=== PATIENT | female | born 1970 | race Two or more races ===

== ENCOUNTER 2016-08-14 15:49 | Emergency (ER) | payer OTHER ==
[~2016-08-14] VITALS: Ht 157.5 cm; Wt 62.6 kg
[~2016-08-14 15:49] MED LIST: ALPR0.25 GT; DULO60CA; DULO60CA PO; FERR325T; HYDROCODONE; HYOS0.1291; LIS10T GT; LISI-275; METF1000 OR; SAXA1TAB; SIMV-8; TRAM50TA2
[2016-08-14 15:57] VITALS: BP 143/79
[2016-08-14 17:03] LABS: Basophils # (auto) 0 uL; Basophils % (auto) 0.5 % (0.0-2.0); DEFINITIVE VIEW TRANSMISSION; Eosinophils # (auto) 0 uL; Eosinophils % (auto) 0.2 % (0.0-7.0); Hematocrit 40.2 % (36.0-46.0); Hemoglobin 13.4 g/dL (12.2-16.2); Lymphocytes # (auto) 1.3 uL; Lymphocytes % (auto) 20.2 % (10.0-50.0); Mean Corpuscular Hgb Conc. 33.3 g/dL (32.0-36.0); Monocytes # (auto) 0.3 uL; Monocytes % (auto) 5.2 % (0.0-12.0); Neutrophils # (auto) 4.8 uL; Neutrophils % (auto) 73.9 % (37.0-80.0); Platelet Count (auto) 276 10^3/uL (140-450); Red Cell Distribution Width 15.3 % (11.6-16.0); White Blood Cell 6.5 10^3/uL (4.4-10.8)
[2016-08-14 17:11] LABS: Albumin 3.8 g/dL (3.4-5.0); Anion Gap 9 (5-15); Blood Urea Nitrogen 17 mg/dL (7-18); Calcium 8.7 mg/dL (8.5-10.1); Carbon Dioxide 26 mmol/L (21-32); Chloride 106 mmol/L (98-107); Glucose 210 mg/dL (74-106); Potassium 3.8 mmol/L (3.5-5.1); Sodium 141 mmol/L (136-145)
[2016-08-14 17:13] LABS: Aspartate Aminotransferase 7 U/L (15-37); BUN/Creatinine Ratio 17.3; GFR African American 78 mL/min; GFR Non-African American 64 mL/min
[2016-08-14 17:18] LABS: Alkaline Phosphatase 62 U/L (45-117); Bilirubin, Total 0.3 mg/dL (0.2-1.0); Total Protein 7.6 g/dL (6.4-8.2)
== END 2016-08-14 21:50 | disposition left against medical advice (07) ==
LOC: ER 15:53
DX: R07.89 Other chest pain (principal); Z53.21 Procedure and treatment not carried out due to patient leaving prior to being seen by health care provider
CPT/HCPCS: 36415; 71020; 80053; 84484; 85025; 93005

== ENCOUNTER 2022-02-10 03:14 | Emergency (ER) | payer BC, OTHER ==
[~2022-02-10] VITALS: Ht 162.6 cm; Wt 160.0 kg
[~2022-02-10 03:14] MED LIST changes: +FERR-20; -FERR325T
[2022-02-10 04:12] LABS: Basophils # (auto) 0.1 10 ^3/uL (0-0.2); Eosinophils # (auto) 0 10 ^3/uL (0-0.8); Eosinophils % (auto) 0.4 % (0.0-7.0); Hemoglobin 12.8 g/dL (12.2-16.2); Red Blood Cells 4.77 10^6/uL (4.0-5.20); White Blood Cell 8.9 10^3/uL (4.4-10.8)
[2022-02-10 04:14] LABS: Basophils % (auto) 0.7 % (0.0-2.0); Hematocrit 38.7 % (36.0-46.0); Lymphocytes # (auto) 2.7 10 ^3/uL (0.4-5.4); Lymphocytes % (auto) 29.7 % (10.0-50.0); Mean Corpuscular Hemoglobin 26.9 pg (28.0-32.0); Mean Corpuscular Hgb Conc. 33.1 g/dL (32.0-36.0); Mean Corpuscular Volume 81.2 fL (80.0-100.0); Monocytes # (auto) 0.3 10 ^3/uL (0-1.3); Monocytes % (auto) 3.8 % (0.0-12.0); Neutrophils # (auto) 5.8 10 ^3/uL (1.6-8.6); Neutrophils % (auto) 65.4 % (37.0-80.0); Nucleated Red Blood Cells % 0.1 %; Red Cell Distribution Width 14.5 % (11.8-14.3)
[2022-02-10 04:33] LABS: Calcium 8.8 mg/dL (8.5-10.1); Potassium 3.3 mmol/L (3.5-5.1)
[2022-02-10 04:36] LABS: BUN/Creatinine Ratio 15.4; Bilirubin, Total 0.4 mg/dL (0.2-1.0); Total Protein 7.4 g/dL (6.4-8.2)
[2022-02-10 08:15] VITALS: BP 124/66
[2022-02-10 08:38] LABS: Urine Bacteria FEW /hpf (None Seen); Urine Blood Negative /uL (Negative); Urine Mucus FEW (None Seen); Urine Specific Gravity 1.021 (1.001-1.035); Urine WBC 1 /hpf (0 - 5)
[2022-02-10] MEDS ORDERED: KETOROLAC TROMETH 30 MG/ML 1ML VIAL IM ONE (09:30)
[2022-02-10] MEDS ORDERED: POTASSIUM EFFERVESENT TAB 25 MEQ PO ONE (09:30)
[2022-02-10] MEDS ORDERED: ONDANSETRON ODT 4 MG TAB PO ONE (09:30)
== END 2022-02-10 10:31 | disposition home or self-care (01) ==
LOC: EDUNIT# 03:14 → ER 03:14 → EDBD 03:14 → ER 10:29
DX: E87.6 Hypokalemia (principal); R11.0 Nausea; R42 Dizziness and giddiness; F12.19 Cannabis abuse with unspecified cannabis-induced disorder
CPT/HCPCS: 36415; 80053; 81001; 81025; 84702; 85025; 93005; 96372; 99284; J1885; Q0162

== ENCOUNTER 2024-10-21 07:52 | Inpatient (IN) | payer BC ==
[2024-10-17 15:01] LABS: Urine Bacteria None Seen /hpf (None Seen)
[2024-10-17 15:07] LABS: Basophils # (auto) 0 10 ^3/uL (0-0.2); Basophils % (auto) 0.5 % (0.0-2.0); Eosinophils # (auto) 0 10 ^3/uL (0-0.8); Eosinophils % (auto) 0.7 % (0.0-7.0); Hematocrit 40.9 % (36.0-46.0); Hemoglobin 13.5 g/dL (12.2-16.2); Lymphocytes % (auto) 32.9 % (10.0-50.0); Mean Corpuscular Hemoglobin 25.9 pg (28.0-32.0); Mean Corpuscular Hgb Conc. 33.1 g/dL (32.0-36.0); Mean Corpuscular Volume 78.1 fL (80.0-100.0); Monocytes # (auto) 0.4 10 ^3/uL (0-1.3); Monocytes % (auto) 6.1 % (0.0-12.0); Neutrophils # (auto) 3.7 10 ^3/uL (1.6-8.6); Neutrophils % (auto) 59.8 % (37.0-80.0); Platelet Count (auto) 252 10^3/uL (140-450); Red Blood Cells 5.23 10^6/uL (4.0-5.20); White Blood Cell 6.1 10^3/uL (4.4-10.8)
[2024-10-17 15:10] LABS: Urine Blood Negative /uL (Negative); Urine Clarity Clear (Clear); Urine Color Colorless (Yellow); Urine Protein, UAD Negative (Negative); Urine Specific Gravity 1.005 (1.001-1.035); Urine Squamous Epithelial Cell FEW /hpf (<5); Urine Urobilinogen Normal (Negative); Urine WBC 2 /HPF (0-5)
[2024-10-17 15:18] LABS: INR 0.99 (0.9-1.15); Partial Thromboplastin Time 31.1 SEC (24.5-34.5); Prothrombin Time 10.5 sec (9.3-11.8)
[2024-10-17 15:28] LABS: Alanine Aminotransferase 52 U/L (7-40); Alkaline Phosphatase 175 U/L (46-116); Anion Gap 7 (5-15); Aspartate Aminotransferase 31 U/L (13-40); Bilirubin, Total 0.5 mg/dL (0.2-1.0); Blood Urea Nitrogen 9 mg/dL (9-23); Calcium 10.2 mg/dL (8.7-10.4); Carbon Dioxide 32 mmol/L (20-31); Chloride 104 mmol/L (98-107); Glucose 76 mg/dL (74-106); Sodium 143 mmol/L (136-145); Total Protein 7.5 g/dL (5.7-8.2)
[~2024-10-21] VITALS: Ht 157.5 cm; Wt 98.0 kg
[~2024-10-21 07:52] MED LIST changes: +ATOR10TA PO; -DULO60CA; -DULO60CA PO; +DULO60CA41; +DULO60CA41 PO; +ETAN50IN10 SC; +EZET-10 PO; -FERR-20; -HYDROCODONE; -HYOS0.1291; +INSU1INJ14 SC; +LINA290C OR; -LIS10T GT; -LISI-275; +LISI20TA56 PO; -METF1000 OR; +PREG150C PO; +PROP1TAB51 PO; -SAXA1TAB; +SEMA2INJ3 SC; -SIMV-8; -TRAM50TA2
[2024-10-21] MEDS ORDERED: MIDAZOLAM HCL 2MG/2ML 2ml VIAL (1mg/ml) ONE (08:45)
[2024-10-21] MEDS ORDERED: fentaNYL CITRATE 100 MCG/2 ML VL ONE (08:45)
[2024-10-21] MEDS ORDERED: fentaNYL CITRATE 5 ML ONE (08:45)
[2024-10-21] MEDS ORDERED: GLYCOPYRROLATE 0.2 MG/ML 1ML VIAL ONE (08:46)
[2024-10-21] MEDS ORDERED: HYDROCORTISONE SOD SUCC 100 MG/2ML INJ VIAL ONE (08:46)
[2024-10-21] MEDS ORDERED: PROPOFOL 10 MG/ML 20 ML IV ONE ×2 (08:46→11:31)
[2024-10-21] MEDS ORDERED: ROCURONIUM 10MG/ML 10ML VIAL IV ONE (08:46)
[2024-10-21] MEDS ORDERED: ONDANSETRON HCL 4 MG/2 ML VIAL ONE (08:46)
[2024-10-21] MEDS ORDERED: KETAMINE 50mg/ML 1ml syringe ONE (08:51)
[2024-10-21] MEDS ORDERED: HYDROmorphone HCL 2 MG/ML VL/or syr ONE (08:51)
--- NOTE | 2024-10-21 08:57 | DVHHP2 ---
History Allergies: Coded Allergies: Metoclopramide (Verified Allergy, Unknown, 08/14/16) Chief Complaint: Lumbar back pain radiating down the left leg, lumbar stenosis with neurogenic claudication and excruciating back pain Present Illness(Onset/Duration Patient complains of left-sided leg weakness initially upper and lower, upper weakness resolved after she had cervical spine surgery she is having residual lumbar radiculopathies and low back pain to the left side Noncontributory Past Surgical History: Other (Patient reports she has had right shoulder surgery prior C-spine surgery, cholecystectomy hysterectomy) Exam Exam General Appearance: No Apparent Distress, Normal HEENT: Normal ENT Inspection Neck: None, Normal Respiratory: No Accessory Muscle Use, None, No Respiratory Distress, Other (Pa binta is speaking full sentences) Cardiovascular: No Edema, No JVD, Other (Skin is pink warm and dry) Gastrointestinal: Other (No complaints of nausea vomiting) Extremities: Normal capillary refill, Normal inspection, Other (Low back pain generated when lifting left knee off the bed to resistance strength is 5/5) Neurologic: Alert, No Motor Deficits, Normal Affect, Normal Mood Cerebellar Function: Other (Low back pain can limit her sitting and standing) Skin: Normal Color Plan Additional comments: Patient arrived for elective spine surgery with Dr. Arsen arguello for a lumbar 3-5 posterior spinal decompression with L3-4, L4-5 posterior spinal interbody fusion The risks/benefits/alternatives of surgery were explained to the patient in detail including but not limited to , stroke, paralysis, myocardial infarction, bleeding, infection, complications of anesthesia (dry mouth, sore throat, dental damage, respiratory depression, blindness), postoperative infe ction, incomplete relief of symptoms, recurrence of symptoms, damage to blood vessels, nerves and tendons, pulmonary embolism and possible need for repeat surgery in the future. Pain, damage to surrounding soft tissue structures, need for reoperation or future surgery, persistent pain/disability/deformity, bone graft collapse or extrusion of interbody device, instrumentation failure, need for instrumentation removal, dural tear, temporary or permanent nerve root damage, deep vein thrombosis, pulmonary embolism, were described to the patient in detail and the patient wishes to proceed. No guarantee of surgical outcome/improvement was implied. All of the questions were answered thoroughly and consents were obtained. Call with america Oakley [facility] Orthopaedic Spine Surgery nurse practitioner For Dr Alex Newby Patient was examined, chart reviewed, labs evaluated, and diagnostic studies and findings analyzed. Case was discussed with Dr. Arsen Newby who formulated the plan of care. This medical document was created using an electronic medical record system with Nixon dictation system. Although this document has been carefully reviewed, there might still be some phonetic and typographical errors. These areas are purely typographical due to imperfections of the software programs, and do not reflect any compromise in the patient's medical care. ALEK OAKLEY NP October 21, 2024 08:57
[2024-10-21] MEDS ORDERED: SUGAMMADEX 200mg/2ml Vial (100MG/ML) IV ONE (11:51)
--- NOTE | 2024-10-21 12:32 | DVHOP2 ---
Operative Report - 2 Report Details Date: 10/21/24 Preop Diagnosis: lumbar degenerative disc disease with spinal stenosis at L3/4 and L4/5 in a congenitally narrow canal causing incapacitating lumbar radiculopathy and neurogenic claudication Postop Diagnosis: same as pre op Surgeon: Arsen Newby MD [employer] Ad[employer] Representative: Antonina Oakley NP Anesthesiologist: Ifeanyi Anesthesia: General Consent: The patient was informed of the risks and benefits of the procedure. These include but are not limited to complications of anesthesia, postoperative infection, incomplete relief of symptoms, recurrence of symptoms, damage to blood vessels, nerves and tendons, deep venous thrombosis, pulmonary embolism and possible need for repeat surgery in the future. Name of Procedure Performed see detailed note Procedure Details Procedure Details: Pre-op Diagnosis: Lumbar Degenerative Disk Disease and Lumbar Spinal Stenosis causing Incapacitating back pain, radiculopathy/ neurogenic claudication and progressive neurologic deficit in a congenitally narrow canal Post-op Diagnosis: Lumbar Degenerative Disk Disease and Lumbar Spinal Stenosis causing Incapacitating back pain, radiculopathy/ neurogenic claudication and progressive neurologic deficit Procedure: Lumbar 5 laminectomy with Lumbar 5 foraminotomies and facetectomies to decompress central canal and Lumbar 5 nerve roots Lumbar 4 laminectomy with Lumbar 4 foraminotomies and facetectomies to decompress central canal and Lumbar 4 nerve roots Lumbar 3 laminectomy with Lumbar 3 foraminotomies and facetectomies to decompress central canal and Lumbar 4 nerve roots Lumbar 3 to 4 posterior spinal interbody fusion with PEEK cage Lumbar 4 to 5 posterior spinal interbody fusion with PEEK cage Lumbar 3 to 5 posterior spinal instrumentation with pedicle screws Local Bone Autograft For Fusion Allograft Bone Substitute (Bacterin) to augment Fusion Use of Demineralized Bone Matrix to Augment Fusion Microscope For Microdissection Surgeon: Arsen Newby MD Assist: AMIRA Franco Anesthesia: General Fluids and EBL: See anesthesia note Patient was seen in the Pre Anesthesia Care Unit (PACU) and the operative site was initialed by me. All questions were answered to the patients satisfaction and chart reviewed. The patient was taken to the operative room where pre- operative antibiotics were given 30 minutes prior to incision. General anesthesia was induced and neuro-monitoring leads placed. Azevedo catheter was placed. The patient was turned prone onto the [facility] spinal table. While positioning, I made sure that the belly was free to allow proper expansion of the lungs. The hips were extended and all bony prominences padded. The shoulders were abducted 80 degree and the elbows flexed 100 degrees with no tension on the brachial plexus. I check the foot arterial pulses and they were palpable. The patient was prepped and draped and time out was taken at this time per usual protocol. At this time, the C-arm fluoroscope was brought in and was used to emery the incision borders proximally and distally. Using a Number 10 Blade, an incision was made extending it proximally and distally per C arm emery from the posterior spinous process of lumbar 4,5 down to the lumbo-dorsal fascia. All bleeding was controlled with electrocautery. Self-retaining retractors were placed. Electrocautery was then used to take down the lumbo- dorsal fascia, to free the muscle off the bone bilaterally. A Jeffrey retractor was placed over the posterior spinous process proximally and a lateral C-arm fluoroscope image was taken to insure we were at the correct level. Next, using bovie electro cautery, The deep fascia laterally to the facet joints was removed to expose the transverse processes of lumbar 3, 4 and 5 while taking care to avoid injuring the facet capsule at the proximal end of the incision. Next, the microscope was bought in for visualization and using a Luxell rongeur, the posterior spinous process of lumbar 3 and 4 and 5 bone were removed and the bone was saved for use as local autograft. I used alternating Kerison 2 mm and 3 mm rongeurs to perform central laminectomies lumbar 5 and 4 and 3 to decompress the central canal. Next using alternating Kerison 2mm and 3 mm rongeurs, the superior articular facets of lumbar 3, 4 and 5 were removed bilaterally to decompress the lateral recess (facetectomies) and then extended proximally to decompress the foramen bilaterally (foraminotomies). I used a ball tipped nerve probed to insure that the respective nerve roots were able to be mobilized 5mm in each direction were unimpeded in the lateral recess and foramen. Next I carefully inspected the dura to make sure no durotomy was visible and it was not. I retracted the right lumbar 5 nerve medially and used increasing size mauri until the proper size prepared and then inserted a 8X28mm PEEK cage in to the disc space at L4/5 using C arm fluoroscopy. I repeated this process at the L3/4 level. The L4/5 PEEK device was 11mm thick. L3/4 PEEK device was 10mm Thick I covered the exposed dura with gelfoam soaked in thrombin and the microscope was wheeled away from the operative filed. The C-arm fluoroscope was brought in and perfect AP views of the lumbar 4 and 5 pedicles were obtained. I placed bilateral pedicle screws at these levels by: using a Lenke awl to make a pilot teacher hole, then a ball tip robe to make sure there was no pedicle breach, then a tap to prepare the track and a 6.5 mm diameter 45 mm length pedicle screw was placed bilaterally. This step to place bilateral pedicle screws was repeated up to the lumbar 3, 4 and 5 level. Next, the c-arm fluoroscope took an AP and lateral x-ray to ensure proper placement of the pedicle screws. Next, the neuro-stimulation probe was placed over the tip of each screw and each screw stimulated only after a current greater than 10 mA was delivered to the screw. Next , I took a Midas Lucas Drill to decorticate the transverse process which were exposed and local bone graft, Bacterin allograft bone substitute and Demineralized bone matrix were placed along the inter transverse process intervals bilaterally (the fusion bed). Next a curved santino sized to fit the pedicle screw interval was placed and secured to each pedicle screw using set screws, The set screws were tightened using a torque screwdriver (set to 10 N*M torque) to secure the santino to the pedicle screws bilaterally. Final AP and lateral C arm fluoroscopic films were taken at this time. Next a 10 Monegasque diameter Hemovac drain was laced deep to the lumbo- dorsal fascia. The lumbo-dorsal fascia was closed with interrupted 0-Vicryl sutures. The subcutaneous tissue was closed with interrupted 2-0 Vicryl sutures. The skin was closed with running 2-0 nylon suture. Sterile dressings were place. The pt. was turned supine onto the stretcher, extubated and taken to the recovery room in stable condition. cpt codes: 46941 , 50452, 60822, 32234, 96516, [id number] Condition Stable Disposition Still a Patient ARSEN NEWBY MD October 21, 2024 12:32
[2024-10-21] MEDS ORDERED: NITROGLYCERIN 0.4 MG SL TAB SL PRN (12:45)
[2024-10-21] MEDS ORDERED: MORPHINE SULFATE INJ 2 MG/ml SYRG IV PRN (12:45)
[2024-10-21] MEDS ORDERED: DEXTROSE (50%) 50ML SYRG IV PRN ×2 (12:45→15:45)
[2024-10-21] MEDS ORDERED: ONDANSETRON HCL 4 MG/2 ML VIAL IV PRN (12:45)
[2024-10-21 13:11] VITALS: PULSE 112; RESP 9; O2SAT 95
[2024-10-21] MEDS: levoFLOXacin 500MG 100 ML IV ONE (13:18)
--- NOTE | 2024-10-21 13:20 | POSTOP ---
Post-Operative Note Post-Operative Note Preop Diagnosis lumbar degenerative disc disease with spinal stenosis at L3/4 and L4/5 in a congenitally narrow canal causing incapacitating lumbar radiculopathy and neur ogenic claudication Postop Diagnosis: lumbar degenerative disc disease with spinal stenosis at L3/4 and L4/5 in a congenitally narrow canal causing incapacitating lumbar radiculopathy and neurogenic claudication Operation performed Procedure: Lumbar 5 laminectomy with Lumbar 5 foraminotomies and facetectomies to decompress central canal and Lumbar 5 nerve roots Lumbar 4 laminectomy with Lumbar 4 foraminotomies and facetectomies to decompress central canal and Lumbar 4 nerve roots Lumbar 3 laminectomy with Lumbar 3 foraminotomies and facetectomies to decompress central canal and Lumbar 4 nerve roots Lumbar 3 to 4 posterior spinal interbody fusion with PEEK cage Lumbar 4 to 5 posterior spinal interbody fusion with PEEK cage Lumbar 3 to 5 posterior spinal instrumentation with pedicle screws Specimen None Anesthesia: General Anesthesiologist: Dr. Suggs Blood Loss(fluid mgmt) 175 mL Tourniquet Time None Surgeon Dr Gila Newby Stress Engineer Antonina Drew NP Implant 6.5 x 45 x 6 screw Set screw x6 80 mm santino x2 10 mm interbody x1 11 mm interbody x1 Complications & Mgmt None Additional Remarks POD # 0 immediate postop note Dx: Lumbar stenosis with neurogenic claudication -Disposition: -Pending -Discharge RX: To be determined -Follow up appointment: with Dr Newby on follow up appointment already scheduled [id number] [facility] [address] [place] [id number] -Pain: - IV pain meds post op day 1, with PO supplementation, goal is to progress weaning off IV medications and control pain with PO only. morphine 1mg q 4 hours (PAIN 7-10) - P.O. analgesics:Tylenol 650MG (PAIN 1-3) [place] 10/325 mg (PAIN 4-6) - Muscle relaxers scheduled administration. This is a beneficial medications for the incisional pain as it is mostly related to muscle spasms. Flexeril 10 mg TID - Cepacol throat lozenges as needed for sore throat -Antibiotics Operative recommendations: -Postoperative dose:-Post operative antibiotics cefazolin 1 g IV piggyback every 8 hours x 48 hours total of 6 doses -DVT PPX: -Hold all chemical DVT/ blood thinners for 14 days postoperatively -use mechanical DVT PPX such as SCD's, ambulation -brace patient needs a TLSO brace when mobilizing -Activity: -Pending PT evaluation and patients progression- have patient wear a TLSO brace when mobilizing -Sit at side of bed for meals -Goal: Ambulate independently and safely (may use assistive devices if needed) -Medical Therapy goals: -Afebrile- Patient may develop a expected post operative fever by day 2-3, this may not be accompanied with a elevation in WBC. if fever develops: Acetaminophen for fever. Albuterol nebulizer Tx every 12 hours for 24 hours to facilitate adequate lung expansion and prevent development of atelectasis. -Euglycemic: bloods sugars under 130mmol/L for optimal healing -Normotensive: Avoid events of hypertension. This helps to keep post operative healing intact and avoids destabilization of beneficial hemostatic coagulation. -Lumbar: -If patient is comfortable encouraged the patient to lay on their side to facilitate wound healing -Drains: -Hemovac drains: These will be to full compression unless otherwise ordered. Please record and document output AND characteristic of fluid present indep endently EVERY 6 hours more often as needed. if there in no output indicate this by documenting 0ml. If output is greater than 100 ml in one hour of robert blood call provider. These drains will be removed once the drainage is at a acceptable level (generally less than 100ml in 24 hours) -Lyric dressing: This will stay in place and will be removed at the patients follow up visit. Nursing is to assess the seal and power source. The seal should be intact and the power source should have a green flashing light indicating it is functioning well. Batteries can last up to 14 days. If a leak develops the dressing edges can be reinforced with a Tegaderm dressing to reestablish intact seal. The Lyric dressing is NOT a wound vac. This does not get changed, it does not need home health management. -Record output independently, drain 1. Is a deep drain and drain 2. Is a yanes perficial drain. Wound drainage is described by type, color, amount, and odor. Drainage can be 1 Serous: Clear and thin, may be present in healing healthy wound. 2 Serosanguineous containing blood may also be present and healthy healing wound 3. Sanguinous primarily blood 4. Purulent this is thick, white, and pus like. It may be indicated to give of a infection and should constitute a call to the provider immediately with the plan that the sample should be cultured. -Azevedo: discontinued in OR -Dressings Take care not to disrupt the LYRIC dressing seal. If there is a break in the seal it can be trouble shot with a Tegaderm dressing. -Dressing to Hemovac drains may be changed once the drains have been removed by the provider. -Bowel management: -Colace 100mg bid -Diet: -Clear liquid diet and advance as patient tolerates within dietary limitations ( example: diabetic, Cardiac) -Incentive Spirometer: -10 x hour while awake, RN please educate and observe repeat demonstration, have IS at bedside POD #1 -X-rays: - none indicated at this time -Consults: -Physical Therapy evaluation, treatment recommendations, and discharge recommendations Call with questions Whit Drew [facility]- Orthopaedic Spine Surgery nurse practitioner For Dr Alex Newby Patient was examined, chart reviewed, labs evaluated, and diagnostic studies and findings analyzed. Case was discussed with Dr. Arsen Newby who formulated the plan of care. This medical document was created using an electronic medical record system with onkea dictation system. Although this document has been carefully reviewed, there might still be some phonetic and typographical errors. These areas are purely typographical due to imperfections of the software programs, and do not reflect any compromise in the patient's medical care. Date 10/21/24 Time 13:19 ANTONINA DREW NP October 21, 2024 13:20
[2024-10-21] MEDS: TRANEXAMIC ACID 20 ML ONE (13:23)
[2024-10-21] MEDS: LIDOCAINE W/ EPINEPHRINE 1% 20ML VIAL ONE (13:23)
--- NOTE | 2024-10-21 13:28 | DVH ---
EXAM: XY LUMBAR SPINE 3 VIEW, XY C ARM FLUOROSCOPY UP TO 60MIN HISTORY: L3-5 POSTERIOR SPINAL DECOMPRESSION W/L3-4, L4-5 SPINAL INT TECHNIQUE: Intraoperative radiographs of the lumbar spine were obtained. FLUOROSCOPY TIME: 139.5 seconds FLUOROSCOPY IMAGES: 23 TOTAL DOSE: 98.42 mGy COMPARISON: None FINDINGS/IMPRESSION: Refer to intraoperative report for further evaluation.
[2024-10-21] MEDS ORDERED: THROAT LOZENGES(CEPASTAT) MT PRN (13:30)
[2024-10-21] MEDS: CYCLOBENZAPRINE HCL 10 MG TAB PO SCH (14:10)
[2024-10-21] MEDS: ceFAZolin 1GM/50ML 50 ML IV SCH (14:10)
[2024-10-21] MEDS: HYDROmorphone HCL 2 MG/ML VL/or syr IV PRN (14:41)
--- NOTE | 2024-10-21 15:51 | DVHINCON2 ---
Date Seen: October 21, [address] BLACK Allergies: Coded Allergies: Metoclopramide (Verified Allergy, Unknown, 08/14/16) Home Meds Reported Medications Atorvastatin Calcium (Lipitor) 10 Mg Tab, 10 MG PO DAILY, TAB 10/17/24 Etanercept (Enbrel Sureclick) 50 Mg/Ml Inj, 50 MG SC, INJ 10/17/24 Lisinopril (Lisinopril) 20 Mg Tab, 20 MG PO DAILY, TAB 10/17/24 Linaclotide Base (LINZESS) 290 Mcg Cap, 290 MCG OR DAILY, CAP 10/17/24 Semaglutide (Ozempic) 2 Mg/3 Ml Inj, SC QWEEKLY, INJ 10/17/24 Ezetimibe (Ezetimibe) 10 Mg Tab, 10 MG PO DAILY, TAB 10/17/24 Pregabalin (Lyrica) 150 Mg Cap, 150 MG PO TID, CAP 10/17/24 Insulin Degludec (Tresiba Flextouch) 100 Unit/Ml Inj, 50 UNIT SC, INJ 10/17/24 Propranolol HCl (Propranolol Hydrochloride) 10 Mg Tab, 10 MG PO TID, TAB 10/17/24 Alprazolam (Xanax) 0.25 Mg Tb, 0.25 MG GT PRN 04/12/13 Duloxetine Hcl (Cymbalta) 60 Mg Cap, #30 04/12/13 Duloxetine Hcl (Cymbalta) 60 Mg Cap, 60 MG PO DAILY, #60 1 Refill 01/21/10 Discontinued Reported Medications Lisinopril (ZESTRIL TABLET) 10 Mg Tb, 10 MG GT DAILY 04/12/13 Saxagliptin-Metformin Hcl (Kombiglyze Xr) 1 Tab Tab, #60 04/12/13 Metformin Hydrochloride (Glucophage) 1,000 Mg Tab, 1000 MG OR BID 08/19/10 Simvastatin (Simvastatin) 20 Mg Tab 08/18/10 Tramadol Hcl (Tramadol Hcl) 50 Mg Tab 08/18/10 [Hydrocodone] No Conflict Check 08/18/10 Lisinopril (Lisinopril) 5 Mg Tab 08/18/10 Current Medications Current Medications Medications (Trade) Dose Ordered Sig/Mague Route PRN Reason Start Time Stop Time Status Last Admin Dextrose/Sodium Chloride 1,000 ml @ 100 mls/hr Q10H IV 10/21/24 12:45 Ondansetron HCl (Zofran) 4 mg Q4HP PRN IV NAUSEA / VOMITING 10/21/24 12:45 Acetaminophen (Tylenol Tablet) 650 mg Q6HP PRN PO MILD PAIN (1-3 PAIN SCALE) 10/21/24 12:45 Acetaminophen/ Hydrocodone Bitart ([place] 10/325MG Tab) 1 tab Q6HP PRN PO MODERATE PAIN (4-6 PAIN SCALE) 10/21/24 12:45 Morphine Sulfate 1 mg Q4HP PRN IV SEVERE PAIN (7-10 PAIN SCALE) 10/21/24 12:45 Cyclobenzaprine HCl (Flexeril Tablet) 10 mg TID PO 10/21/24 14:00 10/21/24 14:10 Docusate Sodium (Colace Capsule) 100 mg BID PO 10/21/24 22:00 Cefazolin Sodium 50 ml @ 100 mls/hr Q8HR IV 10/21/24 14:00 10/23/24 06:29 10/21/24 14:10 Nitroglycerin (Ntrostat Sublingual) 0.4 mg Q5MINP PRN SL FOR CHEST PAIN 10/21/24 12:45 Morphine Sulfate 2 mg Q30M PRN IV FOR CHEST PAIN 10/21/24 12:45 EZETIMIBE (Zetia) 10 mg DAILY PO 10/22/24 10:00 Lisinopril (Zestril Tablet) 20 mg DAILY PO 10/22/24 10:00 Diagnostic Test (Pha) (Accu-Chek Comfort Curve T) 1 strip ACHS 10/21/24 17:00 Insulin Human Regular (InsuLIN R) HS SC 10/21/24 22:00 Insulin Human Regular (InsuLIN R) AC SC 10/21/24 17:00 Dextrose 50 ml UD PRN IV Blood Sugar LESS THAN 60 10/21/24 12:45 Hydromorphone HCl (Dilaudid Injection) 0.5 mg Q10M PRN IV SEVERE PAIN (7-10 PAIN SCALE) 10/21/24 13:30 10/21/24 18:00 10/21/24 14:41 Throat Lozenges (Cepastat Lozenges) 1 norma Q2HP PRN MT FOR SORE THROAT 10/21/24 13:30 Vital Signs Vital Signs Date Time Temp Pulse Resp B/P (MAP) Pulse Ox O2 Delivery O2 Flow Rate FiO2 10/21/24 15:00 104 14 115/63 (80) 99 10/21/24 13:11 Mask 5.0 95 10/21/24 13:11 97.2 97.2 Labs/Diagnostic Data Labs Test 10/21/24 13:15 10/17/24 14:53 Range/Units POC Glucose 115 H 70-106 mg/dl White Blood Count 6.1 4.4-10.8 10^3/uL Red Blood Count 5.23 H 4.0-5.20 10^6/uL Hemoglobin 13.5 12.2-16.2 g/dL Hematocrit 40.9 36.0-46.0 % Mean Corpuscular Volume 78.1 L 80.0-100.0 fL Mean Corpuscular Hemoglobin 25.9 L 28.0-32.0 pg Mean Corpuscular Hemoglobin Concent 33.1 32.0-36.0 g/dL Red Cell Distribution Width 15.0 H 11.8-14.3 % Platelet Count 252 140-450 10^3/uL Mean Platelet Volume 8.2 6.9-10.8 fL Neutrophils (%) (Auto) 59.8 37.0-80.0 % Lymphocytes (%) (Auto) 32.9 10.0-50.0 % Monocytes (%) (Auto) 6.1 0.0-12.0 % Eosinophils (%) (Auto) 0.7 0.0-7.0 % Basophils (%) (Auto) 0.5 0.0-2.0 % Neutrophils # (Auto) 3.7 1.6-8.6 10 ^3/uL Lymphocytes # (Auto) 2.0 0.4-5.4 10 ^3/uL Monocytes # (Auto) 0.4 0-1.3 10 ^3/uL Eosinophils # (Auto) 0 0-0.8 10 ^3/uL Basophils # (Auto) 0 0-0.2 10 ^3/uL Nucleated Red Blood Cells 0.0 % Prothrombin Time 10.5 9.3-11.8 sec Prothrombin Time INR 0.99 0.9-1.15 Activated Partial Thromboplast Time 31.1 24.5-34.5 SEC Urine Color Colorless Yellow Urine Clarity Clear Clear Urine pH 7.0 5.0-9.0 Urine Specific [place] 1.005 1.001-1.035 Urine Protein Negative Negative Urine Ketones Negative Negative Urine Blood Negative Negative /uL Urine Nitrite Negative Negative Urine Bilirubin Negative Negative Urine Urobilinogen Normal Negative mg/dL Urine Leukocyte Esterase Negative Negative /uL Urine RBC <1 0 - 4 /hpf Urine Microscopic WBC 2 0-5 /HPF Urine Squamous Epithelial Cells Few <5 /hpf Urine Bacteria None seen None Seen /hpf Urine Glucose Normal Normal mg/dL Sodium Level 143 136-145 mmol/L Potassium Level 4.0 3.5-5.1 mmol/L Chloride Level 104 98-107 mmol/L Carbon Dioxide Level 32 H 20-31 mmol/L Anion Gap 7 5-15 Blood Urea Nitrogen 9 9-23 mg/dL Creatinine 0.69 0.550-1.02 mg/dL Glomerular Filtration Rate Calc 102 >90 mL/min BUN/Creatinine Ratio 13.0 10.0-20.0 Serum Glucose 76 74-106 mg/dL Calcium Level 10.2 8.7-10.4 mg/dL Total Bilirubin 0.5 0.2-1.0 mg/dL Aspartate Amino Transferase (AST) 31 13-40 U/L Alanine Aminotransferase (ALT) 52 H 7-40 U/L Alkaline Phosphatase 175 H 46-116 U/L Total Protein 7.5 5.7-8.2 g/dL Albumin 5.0 H 3.2-4.8 g/dL Assessment SEE DICTATED NOTE Plan discussed with: Patient, Spouse Date of Service: October 21, 2024 Billing Provider: RENE SIMON MD Common Visit Codes: 87245-ZFPSSCQ INP/OBS CARE (HIGH) RENE SIMON MD October 21, 2024 15:51
[2024-10-21 17:00] VITALS: BP 115/43; PULSE 93; RESP 16; TEMP 97.5; O2SAT 98
[2024-10-21] MEDS: ACCU-CHEK COMFORT CURVE STRIP VI SCH (17:00)
[2024-10-21] MEDS ORDERED: InsuLIN REG 1unit/0.01ml Soln (100units/ml) SC SCH ×2 (17:00→22:00)
[2024-10-21] MEDS: InsuLIN REG 1unit/0.01ml Soln (100units/ml) SC SCH (17:00)
[2024-10-21] MEDS ORDERED: ACCU-CHEK COMFORT CURVE STRIP VI SCH (17:00)
[2024-10-21] MEDS: MORPHINE SULFATE INJ 2 MG/ml SYRG IV PRN (17:55)
[2024-10-21] MEDS: D5W/SOD CHLO 0.9% 1,000 ML IV SCH (17:56)
--- NOTE | 2024-10-21 19:33 | DVHINCON2 ---
INTERNAL MEDICINE CONSULT HISTORY OF PRESENT ILLNESS: The patient is a 54-year-old lady who is admitted after she underwent surgery on the lumbar spine for DJD of the spine. The patient at this time denies any significant back pain. No chest pain or shortness of breath. No nausea or vomiting. REVIEW OF SYSTEMS: Review of rest of systems are otherwise currently negative. PAST MEDICAL HISTORY: Significant for diabetes, hypertension, anxiety, and hyperlipidemia. MEDICATIONS: She takes Cymbalta, Lipitor, insulin, lisinopril, Lyrica, and propranolol. ALLERGIES: REGLAN. SOCIAL HISTORY: Denies smoking or alcohol. Lives at home with family. FAMILY HISTORY: Negative. PHYSICAL EXAMINATION: GENERAL: The patient is awake and alert. VITAL SIGNS: Temperature of 97.2, pulse of 104 per minute, blood pressure 118/64. SHEENT: Unremarkable. NECK: There is no JVD. No pedal edema. LUNGS: Equal bilaterally. No added sounds. CARDIOVASCULAR: S1 and S2 is regular. No murmurs. ABDOMEN: Soft. There is no organomegaly. NEUROLOGIC: Nonfocal. MUSCULOSKELETAL: There is a lumbar spine dressing with a drain in place. ASSESSMENT AND PLAN: * Diabetes mellitus for which she was placed on sliding scale insulin and A1c will be checked. * Hypertension. Medications will be held and blood pressure monitored. * Hyperlipidemia. * Anxiety/depression. 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 The patient will receive pain medication and receive physical therapy. MD MARLO Cano/JJ TID: [id number] RECEIPT: [id number]
[2024-10-21] MEDS: HYDROcodone-ACET 10/325MG TAB PO PRN (19:58)
[2024-10-21 20:00] VITALS: PULSE 80; PULSE 84; RESP 18; O2SAT 98
[2024-10-21 21:00] VITALS: BP 102/52; PULSE 85; RESP 17; TEMP 98; O2SAT 99
[2024-10-21] MEDS: DOCUSATE SOD 100 MG CAP PO SCH (21:01)
[2024-10-21] MEDS: PREGABALIN CAPSULE 75 MG CAP PO SCH (21:01)
[2024-10-22] VITALS (8 sets, daily range): BP systolic 104–119; BP diastolic 44–53; PULSE 73–90; RESP 16–18; TEMP 97.6–98.6; O2SAT 98–100
[2024-10-22 06:36] LABS: Basophils # (auto) 0 10 ^3/uL (0-0.2); Basophils % (auto) 0.1 % (0.0-2.0); Eosinophils # (auto) 0 10 ^3/uL (0-0.8); Hematocrit 28.4 % (36.0-46.0); Hemoglobin 9.6 g/dL (12.2-16.2); Mean Corpuscular Hgb Conc. 33.9 g/dL (32.0-36.0); Monocytes # (auto) 0.5 10 ^3/uL (0-1.3); White Blood Cell 7.7 10^3/uL (4.4-10.8)
[2024-10-22 06:41] LABS: Lymphocytes # (auto) 1.6 10 ^3/uL (0.4-5.4); Lymphocytes % (auto) 21.2 % (10.0-50.0); Mean Corpuscular Hemoglobin 26.6 pg (28.0-32.0); Mean Corpuscular Volume 78.7 fL (80.0-100.0); Monocytes % (auto) 6.5 % (0.0-12.0); Neutrophils # (auto) 5.6 10 ^3/uL (1.6-8.6); Neutrophils % (auto) 72.2 % (37.0-80.0); Nucleated Red Blood Cells % 0.1 %; Platelet Count (auto) 183 10^3/uL (140-450); Red Blood Cells 3.61 10^6/uL (4.0-5.20); Red Cell Distribution Width 14.9 % (11.8-14.3)
[2024-10-22 07:16] LABS: Alkaline Phosphatase 104 U/L (46-116)
[2024-10-22 07:17] LABS: BUN/Creatinine Ratio 23.1 (10.0-20.0); Blood Urea Nitrogen 15 mg/dL (9-23)
[2024-10-22 07:18] LABS: Alanine Aminotransferase 26 U/L (7-40); Albumin 3.6 g/dL (3.2-4.8)
[2024-10-22 07:19] LABS: Anion Gap 7 (5-15); Aspartate Aminotransferase 39 U/L (13-40); Bilirubin, Total 0.5 mg/dL (0.2-1.0); Calcium 8.6 mg/dL (8.7-10.4); Carbon Dioxide 27 mmol/L (20-31); Chloride 108 mmol/L (98-107); Glucose 115 mg/dL (74-106); Potassium 4.1 mmol/L (3.5-5.1); Sodium 142 mmol/L (136-145); Total Protein 5.3 g/dL (5.7-8.2)
[2024-10-22] MEDS: DULoxetine HCL 30 MG CAP PO SCH (09:12)
[2024-10-22] MEDS: EZETIMIBE 10 MG TAB PO SCH (09:12)
[2024-10-22] MEDS ORDERED: LISINOPRIL 20 MG TAB PO SCH (10:00)
[2024-10-22] MEDS: ONDANSETRON HCL 4 MG/2 ML VIAL IV ONE (11:45)
[2024-10-22] MEDS: ACCU-CHEK COMFORT CURVE STRIP VI ONE (11:47)
--- NOTE | 2024-10-22 11:56 | DVHPN2 ---
Progress Note Date Seen: October 22, 2024 Medical Necessity Reason Pt with a Central, PICC or Fol: No Subjective Patient reports: No new complaints Review of Systems: HEENT:Normal, CVS:Normal, RESPIRATORY:Normal, GI:Normal, :Normal, MSK:Normal, NEURO:Normal Objective vital signs Vital Sign Date Time Temp Pulse Resp B/P (MAP) Pulse Ox O2 Delivery O2 Flow Rate FiO2 10/22/24 08:34 98.1 73 18 105/44 (64) 100 98.1 10/21/24 20:00 Room Air* 0 21 Total Intake and Output 10/21/24 10/21/24 10/22/24 14:59 22:59 06:59 Intake Total 200 ml 100 ml 250 ml Output Total 10 ml Balance 190 ml 100 ml 250 ml medications Current Medications Medications Dose Ordered Sig/Mague Route Start Time Stop Time Status Last Admin Dose Admin Dextrose/Sodium Chloride 1,000 ml @ 100 mls/hr Q10H IV 10/21/24 12:45 10/22/24 09:12 100 MLS/HR Ondansetron HCl 4 mg Q4HP PRN IV 10/21/24 12:45 Acetaminophen 650 mg Q6HP PRN PO 10/21/24 12:45 Acetaminophen/ Hydrocodone Bitart 1 tab Q6HP PRN PO 10/21/24 12:45 10/22/24 11:17 1 TAB Morphine Sulfate 1 mg Q4HP PRN IV 10/21/24 12:45 10/21/24 17:55 1 MG Cyclobenzaprine HCl 10 mg TID PO 10/21/24 14:00 10/22/24 06:14 10 MG Docusate Sodium 100 mg BID PO 10/21/24 22:00 10/22/24 09:12 100 MG Cefazolin Sodium 50 ml @ 100 mls/hr Q8HR IV 10/21/24 14:00 10/23/24 06:29 10/22/24 06:38 100 MLS/HR Nitroglycerin 0.4 mg Q5MINP PRN SL 10/21/24 12:45 Morphine Sulfate 2 mg Q30M PRN IV 10/21/24 12:45 EZETIMIBE 10 mg DAILY PO 10/22/24 10:00 10/22/24 09:12 10 MG Throat Lozenges 1 norma Q2HP PRN MT 10/21/24 13:30 Diagnostic Test (Pha) 1 strip ACHS 10/21/24 17:00 10/22/24 11:18 1 STRIP Insulin Human Regular ACHS SC 10/21/24 17:00 10/22/24 11:47 4 UNITS Dextrose 50 ml UD PRN IV 10/21/24 15:45 Pregabalin 150 mg TID PO 10/21/24 22:00 10/22/24 06:14 150 MG Duloxetine HCl 30 mg DAILY PO 10/22/24 10:00 10/22/24 09:12 30 MG Examination: GENERAL:Normal, HEENT:Normal, NECK:Normal, LUNGS:Normal, CVS:Normal, ABDOMEN:Normal, MSK:Normal, MSK:Abnormal (LUMBER DRAINS), SKIN:Normal, NEURO:Normal, :Normal laboratory and microbiology Laboratory Tests 10/22/24 06:04 Test 10/22/24 06:04 Range/Units Serum Glucose 115 H 74-106 mg/dL Problem List/Assessment/Plan Problem List/Assessment/Plan * Diabetes mellitus for which she was placed on sliding scale insulin and A1c will be checked. * Hypertension. Medications will be held and blood pressure monitored, ivf * Hyperlipidemia. * Anxiety/depression. 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 The patient will receive pain medication and receive physical therapy. Plan discussed with: Patient, Spouse My Orders My Orders Orders - RENE SIMON MD Procedure Category Date Status Time Glucose Blood PHA 10/21/24 In Process (Accu-Chek Comfort 17:00 Insulin R (Human) PHA 10/21/24 In Process (Insulin R) 17:00 Dextrose 50% Syringe PHA 10/21/24 In Process 15:45 Pregabalin Capsule PHA 10/21/24 In Process (Lyrica Capsule) 22:00 Duloxetine Hcl PHA 10/22/24 In Process Capsule (Cymbalta 10:00 Basic Metabolic Panel LAB 10/23/24 Verified 06:00 Complete Blood Count LAB 10/23/24 Verified 06:00 Date of Service: October 22, 2024 Billing Provider: RENE SIMON MD Common Visit Codes: [id number] INP/OBS CARE(HIGH) RENE SIMON MD October 22, 2024 11:56
--- NOTE | 2024-10-22 12:20 | DVHPN2 ---
Progress Note - Surgical Date Seen: October 22, 2024 Post op day Post op day: 1 Subjective Patient reports: No new complaints, Feels better Review of Systems: HEENT:Normal, CVS:Normal, RESPIRATORY:Normal, GI:Normal, :Normal, MSK:Normal, NEURO:Normal Objective Vital signs Vital Sign Date Time Temp Pulse Resp B/P (MAP) Pulse Ox O2 Delivery O2 Flow Rate FiO2 10/22/24 08:34 98.1 73 18 105/44 (64) 100 98.1 10/21/24 20:00 Room Air* 0 21 Total Intake and Output 10/21/24 10/21/24 10/22/24 15:00 23:00 07:00 Intake Total 200 ml 100 ml 250 ml Output Total 10 ml 320 ml Balance 190 ml 100 ml -70 ml Medications Current Medications Medications Dose Ordered Sig/Mague Route Start Time Stop Time Status Last Admin Dose Admin Dextrose/Sodium Chloride 1,000 ml @ 100 mls/hr Q10H IV 10/21/24 12:45 10/22/24 09:12 100 MLS/HR Ondansetron HCl 4 mg Q4HP PRN IV 10/21/24 12:45 Acetaminophen 650 mg Q6HP PRN PO 10/21/24 12:45 Acetaminophen/ Hydrocodone Bitart 1 tab Q6HP PRN PO 10/21/24 12:45 10/22/24 11:17 1 TAB Morphine Sulfate 1 mg Q4HP PRN IV 10/21/24 12:45 10/21/24 17:55 1 MG Cyclobenzaprine HCl 10 mg TID PO 10/21/24 14:00 10/22/24 06:14 10 MG Docusate Sodium 100 mg BID PO 10/21/24 22:00 10/22/24 09:12 100 MG Cefazolin Sodium 50 ml @ 100 mls/hr Q8HR IV 10/21/24 14:00 10/23/24 06:29 10/22/24 06:38 100 MLS/HR Nitroglycerin 0.4 mg Q5MINP PRN SL 10/21/24 12:45 Morphine Sulfate 2 mg Q30M PRN IV 10/21/24 12:45 EZETIMIBE 10 mg DAILY PO 10/22/24 10:00 10/22/24 09:12 10 MG Throat Lozenges 1 norma Q2HP PRN MT 10/21/24 13:30 Diagnostic Test (Pha) 1 strip ACHS 10/21/24 17:00 10/22/24 11:18 1 STRIP Insulin Human Regular ACHS SC 10/21/24 17:00 10/22/24 11:47 4 UNITS Dextrose 50 ml UD PRN IV 10/21/24 15:45 Pregabalin 150 mg TID PO 10/21/24 22:00 10/22/24 06:14 150 MG Duloxetine HCl 30 mg DAILY PO 10/22/24 10:00 10/22/24 09:12 30 MG Laboratory Laboratory Tests 10/22/24 06:04 Test 10/22/24 06:04 Range/Units Serum Glucose 115 H 74-106 mg/dL Examination: GENERAL:Normal, HEENT:Normal, NECK:Normal, LUNGS:Normal, CVS:Normal, ABDOMEN:Normal, MSK:Normal (Patient verbalized that her preoperative symptoms have resolved she is having expected postoperative pain at this time), SKIN:Normal (Trung dressing is intact and functioning drains x2 are intact, unfortunately the drainage over the past 24 hours has not been recorded, verified that orders are placed to record drainage upon admission), NEURO:Normal (Patient states that she has been able to get up and ambulate to the hallway with physical therapy patient reported that her preoperative symptoms have improved she is just having expected postoperative), :Normal (Urinary retention was reported overnight patient was straight cath x1 plan for today was to have patient's starts sitting on the commode chair immediately after working with physical therapy to develop bladder bowel habits) Problem List/Assessment/Plan Problems: (1) Muscle spasm of back (2) Postoperative pain after spinal surgery Assessment and Plan Patient is progressing very well postoperatively Reviewed order to document drainage output in drain 1. And drain 2. Every 6 hours as per orders that were established per chart Encouraged patient to sit up in bed, assist patient to sit at site of bed during meal periods Encouraged patient to sit on the commode immediately following physical therapy to help establish voiding and stooling schedule Patient is progressing well only complains of expected postoperative pain, patient states that her preoperative symptoms have improved Continue physical therapy while in-house Nursing staff to monitor and accurately record drain output We will evaluate output tomorrow determine if drains will be discontinued Call with questions Whit Oakley [facility] Orthopaedic Spine Surgery nurse practitioner For Dr Alex Newby Patient was examined, chart reviewed, labs evaluated, and diagnostic studies and findings analyzed. Case was discussed with Dr. Arsen Newby who formulated the plan of care. This medical document was created using an electronic medical record system with [employer] dictation system. Although this document has been carefully reviewed, there might still be some phonetic and typographical errors. These areas are purely typographical due to imperfections of the software programs, and do not reflect any compromise in the patient's medical care. My Orders My Orders Orders - ALEK OAKLEY NP Procedure Category Date Status Time Throat Lozenges PHA 10/21/24 In Process (Cepastat Lozenges) 13:30 Plan discussed with Plan discussed with: Patient, Other Visit Coding Surgery Date of Service if different f: October 22, 2024 Billing Provider: ALEK OAKLEY NP Surgery Visit Codes: NOT BILLABLE ALEK OAKLEY NP October 22, 2024 12:20
[2024-10-23] VITALS (8 sets, daily range): BP systolic 100–133; BP diastolic 49–67; PULSE 74–91; RESP 16–18; TEMP 98.1–99.5; O2SAT 94–100
[2024-10-23 07:21] LABS: Basophils # (auto) 0 10 ^3/uL (0-0.2); Eosinophils # (auto) 0 10 ^3/uL (0-0.8); Hematocrit 28.8 % (36.0-46.0); Hemoglobin 9.2 g/dL (12.2-16.2); Monocytes # (auto) 0.4 10 ^3/uL (0-1.3); Neutrophils # (auto) 3.8 10 ^3/uL (1.6-8.6); Red Blood Cells 3.47 10^6/uL (4.0-5.20)
[2024-10-23 07:24] LABS: Basophils % (auto) 0.4 % (0.0-2.0); Eosinophils % (auto) 0.4 % (0.0-7.0); Lymphocytes % (auto) 31.5 % (10.0-50.0); Mean Corpuscular Hemoglobin 26.5 pg (28.0-32.0); Mean Corpuscular Hgb Conc. 31.9 g/dL (32.0-36.0); Monocytes % (auto) 6.4 % (0.0-12.0); Neutrophils % (auto) 61.3 % (37.0-80.0); Nucleated Red Blood Cells % 0.1 %; Platelet Count (auto) 122 10^3/uL (140-450); Red Cell Distribution Width 15.3 % (11.8-14.3); White Blood Cell 6.2 10^3/uL (4.4-10.8)
[2024-10-23 07:32] LABS: Potassium 3.8 mmol/L (3.5-5.1); Sodium 142 mmol/L (136-145)
[2024-10-23 07:35] LABS: Carbon Dioxide 25 mmol/L (20-31)
[2024-10-23 07:37] LABS: Anion Gap 7 (5-15); Chloride 110 mmol/L (98-107)
[2024-10-23 07:38] LABS: BUN/Creatinine Ratio 16.4 (10.0-20.0); Blood Urea Nitrogen 10 mg/dL (9-23)
[2024-10-23 07:39] LABS: Glucose 125 mg/dL (74-106)
--- NOTE | 2024-10-23 14:32 | DVHPN2 ---
Progress Note Date Seen: October 23, 2024 Medical Necessity Reason Pt with a Central, PICC or Fol: No Subjective Patient reports: No new complaints Review of Systems: HEENT:Normal, CVS:Normal, RESPIRATORY:Normal, GI:Normal, :Normal, MSK:Normal, NEURO:Normal Objective vital signs Vital Sign Date Time Temp Pulse Resp B/P (MAP) Pulse Ox O2 Delivery O2 Flow Rate FiO2 10/23/24 12:59 98.6 75 18 132/64 (86) 100 98.6 10/23/24 08:00 Nasal Cannula* 2 28 Total Intake and Output 10/22/24 10/22/24 10/23/24 15:00 23:00 07:00 Intake Total 200 ml 50 ml Output Total 125 ml Balance 75 ml 50 ml medications Current Medications Medications Dose Ordered Sig/Mague Route Start Time Stop Time Status Last Admin Dose Admin Dextrose/Sodium Chloride 1,000 ml @ 100 mls/hr Q10H IV 10/21/24 12:45 10/23/24 13:22 100 MLS/HR Ondansetron HCl 4 mg Q4HP PRN IV 10/21/24 12:45 Acetaminophen 650 mg Q6HP PRN PO 10/21/24 12:45 Acetaminophen/ Hydrocodone Bitart 1 tab Q6HP PRN PO 10/21/24 12:45 10/22/24 11:17 1 TAB Morphine Sulfate 1 mg Q4HP PRN IV 10/21/24 12:45 10/23/24 10:20 1 MG Cyclobenzaprine HCl 10 mg TID PO 10/21/24 14:00 10/23/24 13:22 10 MG Docusate Sodium 100 mg BID PO 10/21/24 22:00 10/23/24 10:14 100 MG Nitroglycerin 0.4 mg Q5MINP PRN SL 10/21/24 12:45 Morphine Sulfate 2 mg Q30M PRN IV 10/21/24 12:45 EZETIMIBE 10 mg DAILY PO 10/22/24 10:00 10/23/24 10:15 10 MG Throat Lozenges 1 norma Q2HP PRN MT 10/21/24 13:30 Diagnostic Test (Pha) 1 strip ACHS 10/21/24 17:00 10/23/24 11:21 1 STRIP Insulin Human Regular ACHS SC 10/21/24 17:00 10/23/24 11:21 3 UNITS Dextrose 50 ml UD PRN IV 10/21/24 15:45 Pregabalin 150 mg TID PO 10/21/24 22:00 10/23/24 13:21 150 MG Duloxetine HCl 30 mg DAILY PO 10/22/24 10:00 10/23/24 10:15 30 MG Examination: GENERAL:Normal, HEENT:Normal, NECK:Normal, LUNGS:Normal, CVS:Normal, ABDOMEN:Normal, MSK:Normal, MSK:Abnormal (LUMBER DRAINS), SKIN:Normal, NEURO:Normal, :Normal laboratory and microbiology Laboratory Tests 10/23/24 06:27 Test 10/23/24 06:27 Range/Units Serum Glucose 125 H 74-106 mg/dL Problem List/Assessment/Plan Problem List/Assessment/Plan * Diabetes mellitus for which she was placed on sliding scale insulin and A1c will be checked. * Hypertension. Medications will be held and blood pressure monitored, ivf * Hyperlipidemia. * Anxiety/depression. 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 The patient will receive pain medication and receive physical therapy. Plan discussed with: Patient Date of Service: October 23, 2024 Billing Provider: RENE SIMON MD Common Visit Codes: [id number] INP/OBS CARE(HIGH) RENE SIMON MD October 23, 2024 14:32
[2024-10-23] MEDS: D5W/SOD CHLO 0.9% 1,000 ML IV SCH (16:35)
--- NOTE | 2024-10-23 18:56 | DVHPN2 ---
Progress Note - Surgical Date Seen: October 23, 2024 Post op day Post op day: 2 Subjective Patient reports: No new complaints, Feels better Review of Systems: HEENT:Normal, CVS:Normal, RESPIRATORY:Normal, GI:Normal, :Normal, MSK:Normal, NEURO:Normal Objective Vital signs Vital Sign Date Time Temp Pulse Resp B/P (MAP) Pulse Ox O2 Delivery O2 Flow Rate FiO2 10/23/24 16:33 99.5 89 18 133/67 (89) 100 99.5 10/23/24 08:00 Nasal Cannula* 2 28 Total Intake and Output 10/22/24 10/22/24 10/23/24 15:00 23:00 07:00 Intake Total 200 ml 50 ml Output Total 125 ml Balance 75 ml 50 ml Medications Current Medications Medications Dose Ordered Sig/Mague Route Start Time Stop Time Status Last Admin Dose Admin Ondansetron HCl 4 mg Q4HP PRN IV 10/21/24 12:45 Acetaminophen 650 mg Q6HP PRN PO 10/21/24 12:45 Acetaminophen/ Hydrocodone Bitart 1 tab Q6HP PRN PO 10/21/24 12:45 10/22/24 11:17 1 TAB Morphine Sulfate 1 mg Q4HP PRN IV 10/21/24 12:45 10/23/24 10:20 1 MG Cyclobenzaprine HCl 10 mg TID PO 10/21/24 14:00 10/23/24 13:22 10 MG Docusate Sodium 100 mg BID PO 10/21/24 22:00 10/23/24 10:14 100 MG Nitroglycerin 0.4 mg Q5MINP PRN SL 10/21/24 12:45 Morphine Sulfate 2 mg Q30M PRN IV 10/21/24 12:45 EZETIMIBE 10 mg DAILY PO 10/22/24 10:00 10/23/24 10:15 10 MG Throat Lozenges 1 norma Q2HP PRN MT 10/21/24 13:30 Diagnostic Test (Pha) 1 strip ACHS 10/21/24 17:00 10/23/24 16:34 1 STRIP Insulin Human Regular ACHS SC 10/21/24 17:00 10/23/24 11:21 3 UNITS Dextrose 50 ml UD PRN IV 10/21/24 15:45 Pregabalin 150 mg TID PO 10/21/24 22:00 10/23/24 13:21 150 MG Duloxetine HCl 30 mg DAILY PO 10/22/24 10:00 10/23/24 10:15 30 MG Dextrose/Sodium Chloride 1,000 ml @ 75 mls/hr [id number] IV 10/23/24 14:30 10/23/24 16:35 75 MLS/HR Laboratory Laboratory Tests 10/23/24 06:27 Test 10/23/24 06:27 Range/Units Serum Glucose 125 H 74-106 mg/dL Examination: GENERAL:Normal, HEENT:Normal, NECK:Normal, LUNGS:Normal, CVS:Normal, ABDOMEN:Normal, MSK:Normal, SKIN:Normal, NEURO:Normal Problem List/Assessment/Plan Problems: (1) Postoperative pain after spinal surgery (2) Muscle spasm of back Assessment and Plan Patient is progressing very well postoperatively Reviewed order to document drainage output in drain 1. and drain 2. Every 6 hours as per orders that were established per chart Encouraged patient to sit up in bed, assist patient to sit at site of bed during meal periods Encouraged patient to sit on the commode immediately following physical therapy to help establish voiding and stooling schedule Patient is progressing well only complains of expected postoperative pain, patient states that her preoperative symptoms have improved Continue physical therapy while in-house Nursing staff to monitor and accurately record drain output We will evaluate output tomorrow determine if drains will be discontinued Call with questions Whit Oakley [facility] Orthopaedic Spine Surgery nurse practitioner For Dr Alex Newby Patient was examined, chart reviewed, labs evaluated, and diagnostic studies and findings analyzed. Case was discussed with Dr. Arsen Newby who formulated the plan of care. This medical document was created using an electronic medical record system with [employer] dictation system. Although this document has been carefully reviewed, there might still be some phonetic and typographical errors. These areas are purely typographical due to imperfections of the software programs, and do not reflect any compromise in the patient's medical care. Plan discussed with Plan discussed with: Patient Visit Coding Surgery Date of Service if different f: October 23, 2024 Billing Provider: ALEK OAKLEY NP Surgery Visit Codes: NOT BILLABLE ALEK OAKLEY NP October 23, 2024 18:56
[2024-10-24] VITALS (8 sets, daily range): BP systolic 122–143; BP diastolic 57–64; PULSE 63–114; RESP 18–20; TEMP 97.7–100.4; O2SAT 93–99
[2024-10-24 06:51] LABS: Basophils # (auto) 0 10 ^3/uL (0-0.2); Basophils % (auto) 0.3 % (0.0-2.0); Eosinophils # (auto) 0 10 ^3/uL (0-0.8); Eosinophils % (auto) 0.9 % (0.0-7.0); Hematocrit 25.4 % (36.0-46.0); Hemoglobin 8.5 g/dL (12.2-16.2); Lymphocytes % (auto) 35.8 % (10.0-50.0); Mean Corpuscular Hemoglobin 26.5 pg (28.0-32.0); Mean Corpuscular Hgb Conc. 33.5 g/dL (32.0-36.0); Mean Corpuscular Volume 78.9 fL (80.0-100.0); Monocytes # (auto) 0.4 10 ^3/uL (0-1.3); Neutrophils # (auto) 3.1 10 ^3/uL (1.6-8.6); Platelet Count (auto) 160 10^3/uL (140-450); Red Blood Cells 3.22 10^6/uL (4.0-5.20); Red Cell Distribution Width 15.2 % (11.8-14.3); White Blood Cell 5.5 10^3/uL (4.4-10.8)
--- NOTE | 2024-10-24 14:54 | DVHPN2 ---
Subjective no BM, will add bowel reg Changes from previous H/P or p: No Changes Objective Vitals Vital Signs Date Time Temp Pulse Resp B/P (MAP) Pulse Ox O2 Delivery O2 Flow Rate FiO2 10/24/24 11:50 99.0 96 20 129/57 (81) 93 99.0 10/24/24 08:00 Nasal Cannula* 2 28 Intake/Output Intake and Output 10/24/24 07:00 Intake Total 250 ml Output Total 50 ml Balance 200 ml IV Total 250 ml Drainage Total 50 ml Medications Current Medications Medications Dose Ordered Sig/Mague Route Start Time Stop Time Status Last Admin Dose Admin Ondansetron HCl 4 mg Q4HP PRN IV 10/21/24 12:45 Acetaminophen 650 mg Q6HP PRN PO 10/21/24 12:45 Acetaminophen/ Hydrocodone Bitart 1 tab Q6HP PRN PO 10/21/24 12:45 10/24/24 10:06 1 TAB Morphine Sulfate 1 mg Q4HP PRN IV 10/21/24 12:45 10/23/24 10:20 1 MG Cyclobenzaprine HCl 10 mg TID PO 10/21/24 14:00 10/24/24 13:56 10 MG Docusate Sodium 100 mg BID PO 10/21/24 22:00 10/24/24 10:07 100 MG Nitroglycerin 0.4 mg Q5MINP PRN SL 10/21/24 12:45 Morphine Sulfate 2 mg Q30M PRN IV 10/21/24 12:45 EZETIMIBE 10 mg DAILY PO 10/22/24 10:00 10/24/24 10:09 10 MG Throat Lozenges 1 norma Q2HP PRN MT 10/21/24 13:30 Diagnostic Test (Pha) 1 strip ACHS 10/21/24 17:00 10/24/24 12:17 1 STRIP Insulin Human Regular ACHS SC 10/21/24 17:00 10/24/24 12:21 2 UNITS Dextrose 50 ml UD PRN IV 10/21/24 15:45 Pregabalin 150 mg TID PO 10/21/24 22:00 10/24/24 13:56 150 MG Duloxetine HCl 30 mg DAILY PO 10/22/24 10:00 10/24/24 10:06 30 MG Dextrose/Sodium Chloride 1,000 ml @ 75 mls/hr [id number] IV 10/23/24 14:30 10/23/24 16:35 75 MLS/HR Laboratory Results Laboratory Tests 10/23/24 06:27 10/24/24 06:04 Urinalysis Test 10/17/24 14:53 Urine Color Colorless (Yellow) Urine Clarity Clear (Clear) Urine pH 7.0 (5.0-9.0) Urine Specific [place] 1.005 (1.001-1.035) Urine Protein Negative (Negative) Urine Ketones Negative (Negative) Urine Blood Negative /uL (Negative) Urine Nitrite Negative (Negative) Urine Bilirubin Negative (Negative) Urine Urobilinogen Normal mg/dL (Negative) Urine Leukocyte Esterase Negative /uL (Negative) Urine RBC <1 /hpf (0 - 4) Urine Microscopic WBC 2 /HPF (0-5) Urine Squamous Epithelial Cells Few /hpf (<5) Urine Bacteria None seen /hpf (None Seen) Urine Glucose Normal mg/dL (Normal) Assessment/Plan Assessment/Plan * Diabetes mellitus for which she was placed on sliding scale insulin and A1c will be checked. * Hypertension. Medications will be held and blood pressure monitored, ivf * Hyperlipidemia. * Anxiety/depression. 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 The patient will receive pain medication and receive physical therapy. pending ortho clearance and placement Plan discussed with: Patient Date of Service: October 24, 2024 Billing Provider: FREDY WALTER MD Common Visit Codes: [id number] INP/OBS CARE(HIGH) FREDY WALTER MD October 24, 2024 14:54
[2024-10-24] MEDS ORDERED: POLYETHYLENE GLYCOL 17 GM PWDR PO PRN (15:00)
[2024-10-24] MEDS: ACETAMINOPHEN 325 MG TAB PO PRN (20:25)
[2024-10-25] VITALS (7 sets, daily range): BP systolic 108–140; BP diastolic 34–60; PULSE 82–95; RESP 16–18; TEMP 98.2–99.2; O2SAT 94–98
--- NOTE | 2024-10-25 14:17 | DVHDS2 ---
Discharge Summary Date of Admission October 21, 2024 at 12:32 Date of Discharge: October 25, 2024 Labs/Diagnostic Data: Laboratory Results Test 10/25/24 11:20 10/24/24 06:04 10/23/24 06:27 10/22/24 06:04 POC Glucose 166 mg/dl (70-106) White Blood Count 5.5 10^3/uL (4.4-10.8) Red Blood Count 3.22 10^6/uL (4.0-5.20) Hemoglobin 8.5 g/dL (12.2-16.2) Hematocrit 25.4 % (36.0-46.0) Mean Corpuscular Volume 78.9 fL (80.0-100.0) Mean Corpuscular Hemoglobin 26.5 pg (28.0-32.0) Mean Corpuscular Hemoglobin Concent 33.5 g/dL (32.0-36.0) Red Cell Distribution Width 15.2 % (11.8-14.3) Platelet Count 160 10^3/uL (140-450) Mean Platelet Volume 8.7 fL (6.9-10.8) Neutrophils (%) (Auto) 56.0 % (37.0-80.0) Lymphocytes (%) (Auto) 35.8 % (10.0-50.0) Monocytes (%) (Auto) 7.0 % (0.0-12.0) Eosinophils (%) (Auto) 0.9 % (0.0-7.0) Basophils (%) (Auto) 0.3 % (0.0-2.0) Neutrophils # (Auto) 3.1 10 ^3/uL (1.6-8.6) Lymphocytes # (Auto) 2.0 10 ^3/uL (0.4-5.4) Monocytes # (Auto) 0.4 10 ^3/uL (0-1.3) Eosinophils # (Auto) 0 10 ^3/uL (0-0.8) Basophils # (Auto) 0 10 ^3/uL (0-0.2) Nucleated Red Blood Cells 0.0 % Sodium Level 142 mmol/L (136-145) Potassium Level 3.8 mmol/L (3.5-5.1) Chloride Level 110 mmol/L (98-107) Carbon Dioxide Level 25 mmol/L (20-31) Anion Gap 7 (5-15) Blood Urea Nitrogen 10 mg/dL (9-23) Creatinine 0.61 mg/dL (0.550-1.02) Glomerular Filtration Rate Calc 105 mL/min (>90) BUN/Creatinine Ratio 16.4 (10.0-20.0) Serum Glucose 125 mg/dL (74-106) Calcium Level 9.0 mg/dL (8.7-10.4) Hemoglobin A1c 6.5 % A1C (<5.7) Total Bilirubin 0.5 mg/dL (0.2-1.0) Aspartate Amino Transferase (AST) 39 U/L (13-40) Alanine Aminotransferase (ALT) 26 U/L (7-40) Alkaline Phosphatase 104 U/L (46-116) Total Protein 5.3 g/dL (5.7-8.2) Albumin 3.6 g/dL (3.2-4.8) Test 10/17/24 14:53 Prothrombin Time 10.5 sec (9.3-11.8) Prothrombin Time INR 0.99 (0.9-1.15) Activated Partial Thromboplast Time 31.1 SEC (24.5-34.5) Urine Color Colorless (Yellow) Urine Clarity Clear (Clear) Urine pH 7.0 (5.0-9.0) Urine Specific [place] 1.005 (1.001-1.035) Urine Protein Negative (Negative) Urine Ketones Negative (Negative) Urine Blood Negative /uL (Negative) Urine Nitrite Negative (Negative) Urine Bilirubin Negative (Negative) Urine Urobilinogen Normal mg/dL (Negative) Urine Leukocyte Esterase Negative /uL (Negative) Urine RBC <1 /hpf (0 - 4) Urine Microscopic WBC 2 /HPF (0-5) Urine Squamous Epithelial Cells Few /hpf (<5) Urine Bacteria None seen /hpf (None Seen) Urine Glucose Normal mg/dL (Normal) Other Laboratory Tests 10/24/24 06:04 10/23/24 06:27 Brief Hx & Hospital Course: The patient is a 54-year-old lady who is admitted after she underwent surgery on the lumbar spine for DJD of the spine. 1 drain removed. able to ambulate, tolerate oral feeeding, having BM. setup for home health PT pending discharge. 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 Patient was counseled about treatment plan, medications, possible side effects, patientverbalized understanding. All questions were answered to the best of my ability. This discharge took greater then 30 minutes in planning, reviewing documentation, counseling the patient, and discussing with other team members." ASSESSMENT ASSESSMENT Assessment lumbar degenerative disc disease with spinal stenosis at L3/4 and L4/5 deysi congenitally narrow canal causing incapacitating lumbar radiculopathyand neurogenic claudication Date of Service: October 25, 2024 Billing Provider: FREDY WALTER MD Common Visit Codes: [id number] DISCH DAY >30min FREDY WALTER MD October 25, 2024 14:17
[2024-10-26 01:00] VITALS: BP 128/50; PULSE 78; RESP 18; TEMP 98.7; O2SAT 97
[2024-10-26 05:06] VITALS: BP 132/58; PULSE 80; RESP 18; TEMP 98.6; O2SAT 94
[2024-10-26 09:00] VITALS: BP 106/41; PULSE 81; RESP 20; TEMP 98.7; O2SAT 98
[2024-10-26 13:00] VITALS: BP_SYST 114; BP_DIAS 45; BP_DIAS 54; PULSE 77; RESP 16; TEMP 98.3; O2SAT 98
[2024-10-26] MEDS ORDERED: HYDR-4902 PO (14:59)
--- NOTE | 2024-10-26 18:11 | DVHPN2 ---
Subjective for dc, cleared by ortho spine Changes from previous H/P or p: No Changes Objective Vitals Vital Signs Date Time Temp Pulse Resp B/P (MAP) Pulse Ox O2 Delivery O2 Flow Rate FiO2 10/26/24 13:00 98.3 77 16 114/45 (68) 98 98.3 10/26/24 08:00 Room Air* 0 21 Intake/Output Intake and Output 10/26/24 07:00 Intake Total 1480 ml Balance 1480 ml Intake Oral 480 ml IV Total 1000 ml Medications Current Medications Medications Dose Ordered Sig/Mague Route Start Time Stop Time Status Last Admin Dose Admin Ondansetron HCl 4 mg Q4HP PRN IV 10/21/24 12:45 Acetaminophen 650 mg Q6HP PRN PO 10/21/24 12:45 10/25/24 20:29 650 MG Acetaminophen/ Hydrocodone Bitart 1 tab Q6HP PRN PO 10/21/24 12:45 10/26/24 09:31 1 TAB Morphine Sulfate 1 mg Q4HP PRN IV 10/21/24 12:45 10/25/24 18:31 1 MG Cyclobenzaprine HCl 10 mg TID PO 10/21/24 14:00 10/26/24 13:44 10 MG Docusate Sodium 100 mg BID PO 10/21/24 22:00 10/26/24 09:30 100 MG Nitroglycerin 0.4 mg Q5MINP PRN SL 10/21/24 12:45 Morphine Sulfate 2 mg Q30M PRN IV 10/21/24 12:45 EZETIMIBE 10 mg DAILY PO 10/22/24 10:00 10/26/24 09:31 10 MG Throat Lozenges 1 norma Q2HP PRN MT 10/21/24 13:30 Diagnostic Test (Pha) 1 strip ACHS 10/21/24 17:00 10/26/24 17:43 1 STRIP Insulin Human Regular ACHS SC 10/21/24 17:00 10/26/24 11:42 4 UNITS Dextrose 50 ml UD PRN IV 10/21/24 15:45 Pregabalin 150 mg TID PO 10/21/24 22:00 10/26/24 13:44 150 MG Duloxetine HCl 30 mg DAILY PO 10/22/24 10:00 10/26/24 09:30 30 MG Dextrose/Sodium Chloride 1,000 ml @ 75 mls/hr [id number] IV 10/23/24 14:30 10/26/24 05:49 75 MLS/HR Polyethylene Glycol 17 gm DAILYPRN PRN PO 10/24/24 15:00 Laboratory Results Laboratory Tests 10/23/24 06:27 10/24/24 06:04 Urinalysis Test 10/17/24 14:53 Urine Color Colorless (Yellow) Urine Clarity Clear (Clear) Urine pH 7.0 (5.0-9.0) Urine Specific [place] 1.005 (1.001-1.035) Urine Protein Negative (Negative) Urine Ketones Negative (Negative) Urine Blood Negative /uL (Negative) Urine Nitrite Negative (Negative) Urine Bilirubin Negative (Negative) Urine Urobilinogen Normal mg/dL (Negative) Urine Leukocyte Esterase Negative /uL (Negative) Urine RBC <1 /hpf (0 - 4) Urine Microscopic WBC 2 /HPF (0-5) Urine Squamous Epithelial Cells Few /hpf (<5) Urine Bacteria None seen /hpf (None Seen) Urine Glucose Normal mg/dL (Normal) Assessment/Plan Assessment/Plan * Diabetes mellitus for which she was placed on sliding scale insulin and A1c will be checked. * Hypertension. Medications will be held and blood pressure monitored, ivf * Hyperlipidemia. * Anxiety/depression. 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 The patient will receive pain medication and receive physical therapy. cleared by orhto Plan discussed with: Patient My Orders Orders - FREDY WALTER MD Procedure Category Date Status Time Discharge DISCHARGE 10/26/24 Transmitted 14:59 Date of Service: October 26, 2024 Billing Provider: FREDY WALTER MD Common Visit Codes: [id number] DISCH DAY >30min FREDY WALTER MD October 26, 2024 18:11
[2024-10-26 20:00] VITALS: PULSE 82; RESP 16; O2SAT 98
[2024-10-26 21:00] VITALS: BP 129/52; PULSE 82; RESP 18; TEMP 98.4; O2SAT 98
[2024-10-27 00:54] VITALS: BP 131/56; PULSE 77; RESP 18; TEMP 98.1; O2SAT 98
[2024-10-27 05:06] VITALS: BP 128/54; PULSE 79; RESP 18; TEMP 98; O2SAT 100
[2024-10-27 09:00] VITALS: BP 126/63; PULSE 88; RESP 16; TEMP 98.8; O2SAT 93
--- NOTE | 2024-10-27 11:39 | DVHPN2 ---
Progress Note Date Seen: October 27, 2024 Medical Necessity Reason Pt with a Central, PICC or Fol: No Subjective Patient reports: No new complaints Review of Systems: HEENT:Normal, CVS:Normal, RESPIRATORY:Normal, GI:Normal, :Normal, MSK:Normal, NEURO:Normal Objective vital signs Vital Sign Date Time Temp Pulse Resp B/P (MAP) Pulse Ox O2 Delivery O2 Flow Rate FiO2 10/27/24 09:00 98.8 88 16 126/63 (84) 93 98.8 10/26/24 20:00 Room Air* 0 21 Total Intake and Output 10/26/24 10/26/24 10/27/24 15:00 23:00 07:00 Intake Total 800 ml Balance 800 ml medications Current Medications Medications Dose Ordered Sig/Mague Route Start Time Stop Time Status Last Admin Dose Admin Ondansetron HCl 4 mg Q4HP PRN IV 10/21/24 12:45 Acetaminophen 650 mg Q6HP PRN PO 10/21/24 12:45 10/25/24 20:29 650 MG Acetaminophen/ Hydrocodone Bitart 1 tab Q6HP PRN PO 10/21/24 12:45 10/27/24 09:39 1 TAB Morphine Sulfate 1 mg Q4HP PRN IV 10/21/24 12:45 10/26/24 20:11 1 MG Cyclobenzaprine HCl 10 mg TID PO 10/21/24 14:00 10/27/24 05:06 10 MG Docusate Sodium 100 mg BID PO 10/21/24 22:00 10/27/24 09:33 100 MG Nitroglycerin 0.4 mg Q5MINP PRN SL 10/21/24 12:45 Morphine Sulfate 2 mg Q30M PRN IV 10/21/24 12:45 EZETIMIBE 10 mg DAILY PO 10/22/24 10:00 10/27/24 09:33 10 MG Throat Lozenges 1 norma Q2HP PRN MT 10/21/24 13:30 Diagnostic Test (Pha) 1 strip ACHS 10/21/24 17:00 10/27/24 05:09 1 STRIP Insulin Human Regular ACHS SC 10/21/24 17:00 10/27/24 05:09 3 UNITS Dextrose 50 ml UD PRN IV 10/21/24 15:45 Pregabalin 150 mg TID PO 10/21/24 22:00 10/27/24 05:06 150 MG Duloxetine HCl 30 mg DAILY PO 10/22/24 10:00 10/27/24 09:33 30 MG Dextrose/Sodium Chloride 1,000 ml @ 75 mls/hr [id number] IV 10/23/24 14:30 10/26/24 21:40 75 MLS/HR Polyethylene Glycol 17 gm DAILYPRN PRN PO 10/24/24 15:00 Examination: GENERAL:Normal, HEENT:Normal, NECK:Normal, LUNGS:Normal, CVS:Normal, ABDOMEN:Normal, MSK:Normal, SKIN:Normal, NEURO:Normal, :Normal laboratory and microbiology Laboratory Tests 10/24/24 06:04 10/23/24 06:27 Test 10/23/24 06:27 Range/Units Serum Glucose 125 H 74-106 mg/dL Problem List/Assessment/Plan Problem List/Assessment/Plan * Diabetes mellitus for which she was placed on sliding scale insulin and A1c will be checked. * Hypertension. Medications will be held and blood pressure monitored, ivf * Hyperlipidemia. * Anxiety/depression. 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 The patient will receive pain medication and receive physical therapy. DC planning to home today Plan discussed with: Patient Date of Service: October 27, 2024 Billing Provider: RENE SIMON MD Common Visit Codes: [id number] INP/OBS CARE(HIGH) RENE SIMON MD October 27, 2024 11:39
== END 2024-10-27 12:50 | disposition home health service (06) | DRG 428 ==
LOC: SUR 07:52 → OVERFLOW 12:32 → TELE-WESTW 15:21 → WEST WING 10-23 23:11
PROVIDERS: ADMIT Internal Medicine; ATTEND Internal Medicine
PROC: 0SG10AJ Fusion of 2 or more Lumbar Vertebral Joints with Interbody Fusion Device, Posterior Approach, Anterior Column, Open Approach (ICD-10-PCS; 2024-10-21)
PROC: 01NB0ZZ Release Lumbar Nerve, Open Approach (ICD-10-PCS; 2024-10-21)
PROC: 00NY0ZZ Release Lumbar Spinal Cord, Open Approach (ICD-10-PCS; 2024-10-21)
PROC: 4A11X4G Monitoring of Peripheral Nervous Electrical Activity, Intraoperative, External Approach (ICD-10-PCS; 2024-10-21)
PROC: 0SG1071 Fusion of 2 or more Lumbar Vertebral Joints with Autologous Tissue Substitute, Posterior Approach, Posterior Column, Open Approach (ICD-10-PCS; principal; 2024-10-21 08:59)
DX: M48.062 Spinal stenosis, lumbar region with neurogenic claudication (principal); M51.16 Intervertebral disc disorders with radiculopathy, lumbar region; F41.9 Anxiety disorder, unspecified; F32.A Depression, unspecified; E11.9 Type 2 diabetes mellitus without complications; M47.896 Other spondylosis, lumbar region; I10 Essential (primary) hypertension; E78.5 Hyperlipidemia, unspecified; Z90.710 Acquired absence of both cervix and uterus; Z90.49 Acquired absence of other specified parts of digestive tract; Z88.8 Allergy status to other drugs, medicaments and biological substances; Z79.84 Long term (current) use of oral hypoglycemic drugs; Z79.899 Other long term (current) drug therapy
CPT/HCPCS: 36415; 72100; 76000; 80048; 80053; 81001; 82962; 83036; 85025; 85610; 85730; 86850; 86900; 86901; 97110; 97116; 97163; A4344; G0378; J1815; J1956; J2250; J2405; J2704; J7042